=== PATIENT | female | born 1935 | race Caucasian/White ===

== ENCOUNTER 2020-04-23 08:24 | Inpatient (IN) ==
[2020-04-23] MEDS ORDERED: Nitroglycerin 0.4 MG TAB.SUBL SL PRN (08:40)
[2020-04-23] MEDS ORDERED: Aspirin 81 MG TAB.CHEW PO ONE (08:40)
[2020-04-23 08:58] LABS: Basophils % 0.3 %; Eosinophils # 0.2 K/mcL (0.0-0.6); Eosinophils % 2.1 %; Hemoglobin 13.2 g/dL (11.5-15.4); Immature Granulocytes % 0.4 % (0-4); Lymphocytes # 2.4 K/mcL (0.6-4.6); Lymphocytes % 22.3 %; Mean Corpuscular Hemoglobin 30.1 pg (28.0-33.3); Mean Corpuscular Volume 91.3 fL (83.0-100.0); Monocytes # 0.9 K/mcL (0.0-1.3); Monocytes % 8.6 %; Neutrophils # 7.2 K/mcL (1.6-8.9); Platelet Count 303 K/mcL (140-400); Red Blood Count 4.38 M/mcL (3.82-4.97); Red Cell Distribution Width 12.4 % (11.5-14.5); Segmented Neutrophils % 66.3 %; White Blood Count 10.9 K/mcL (4.3-11.1)
[2020-04-23 09:19] LABS: BUN/Creatinine Ratio 23 (6-26); Blood Urea Nitrogen 25 mg/dL (8-23); Calcium 9.9 mg/dL (8.6-10.3); Carbon Dioxide 25 mEq/L (23-29); Chloride 103 mEq/L (98-107); Glucose 211 mg/dL (70-105); Lipase 24 Units/L (11-82); Osmolality,Calculated 297 (280-300); Potassium 4.3 mEq/L (3.5-5.1); Sodium 138 mEq/L (136-145); Troponin I < 0.03 ng/mL (< 0.04); eGFR For African Americans 58 (> 60); eGFR For Non-African Americans 48 (> 60)
[2020-04-23 09:20] LABS: Prothrombin Time 11.1 Seconds (9.4-12.1)
[2020-04-23 09:22] LABS: Activated Partial Thrombo Time 28.4 Seconds (26.0-36.0)
[2020-04-23 10:25] LABS: Adenovirus Not Detected (Not Detect); Bordetella Pertussis Not Detected (Not Detect); Chlamydophila pneumoniae Not Detected (Not Detect); Coronavirus 229E Not Detected (Not Detect); Coronavirus HKU1 Not Detected (Not Detect); Coronavirus NL63 Not Detected (Not Detect); Coronavirus OC43 Not Detected (Not Detect); Human Metapneumovirus Not Detected (Not Detect); Human Rhinovirus/Enterovirus Not Detected (Not Detect); Influenza A Subtype 2009 H1 Not Detected (Not Detect); Influenza B Not Detected (Not Detect); Mycoplasma pneumoniae Not Detected (Not Detect); Parainfluenza Virus 1 Not Detected (Not Detect); Parainfluenza Virus 2 Not Detected (Not Detect); Parainfluenza Virus 3 Not Detected (Not Detect); Parainfluenza Virus 4 Not Detected (Not Detect); Respiratory Syncytial Virus Not Detected (Not Detect); SARS-CoV-2 Not Detected (Not Detect)
[2020-04-23] MEDS ORDERED: Acetaminophen 325 MG TABLET PO PRN (12:02)
[2020-04-23] MEDS ORDERED: MOM Conc 10 ML UD.LIQ PO PRN (12:02)
[2020-04-23] MEDS ORDERED: Naloxone 0.4 MG/ML INJ IVP PRN (12:02)
[2020-04-23] MEDS ORDERED: *HR* HYDROcodone/Acet 5/325 mg TABLET PO PRN (12:02)
[2020-04-23] MEDS ORDERED: Ondansetron 4 MG/2 ML VIAL IVP PRN (12:02)
[2020-04-23] MEDS ORDERED: Mag Hydrox/Al Hydrox/Simeth 30 ML UDC PO PRN (12:02)
[2020-04-23] MEDS ORDERED: Perflutren Lipid Microsphere 1.3 ML in 0.9 % Sodium Chloride 8.7 ML IVP PRN (12:07)
[2020-04-23] MEDS ORDERED: *HR* Dextrose 50 % in Water (Vial) 50 ML VIAL IVP PRN (12:09)
[2020-04-23] MEDS ORDERED: Dextrose Gel 15 GM/37.5 ML TUBE PO PRN ×2 (12:09)
[2020-04-23] MEDS ORDERED: D5% in Water 1,000 ML IVC PRN (12:09)
[2020-04-23] MEDS ORDERED: amLODIPine 5 MG TABLET PO SCH (12:15)
[2020-04-23] MEDS: lisinopriL 20 MG TABLET PO SCH (14:58)
[2020-04-23] MEDS: *HR* Heparin 5,000 UNIT/ML VIAL SQ SCH (18:06)
[2020-04-23] MEDS: Insulin LISPRO 300 UNITS/3 ML VIAL SQ SCH ×2 (18:06→20:59)
[2020-04-24] MEDS: *HR* Heparin 5,000 UNIT/ML VIAL SQ SCH (05:16)
[2020-04-24 07:24] LABS: Basophils % 0.4 %; Eosinophils # 0.2 K/mcL (0.0-0.6); Hematocrit 38.8 % (35.3-44.9); Hemoglobin 12.6 g/dL (11.5-15.4); Immature Granulocytes % 0.4 % (0-4); Lymphocytes % 25.8 %; Mean Corpuscular HGB Conc 32.5 g/dL (31.6-35.5); Mean Corpuscular Hemoglobin 29.3 pg (28.0-33.3); Mean Corpuscular Volume 90.2 fL (83.0-100.0); Mean Platelet Volume 10.9 fL (9.4-12.4); Monocytes # 0.8 K/mcL (0.0-1.3); Monocytes % 9.8 %; Neutrophils # 4.7 K/mcL (1.6-8.9); Platelet Count 282 K/mcL (140-400); Red Cell Distribution Width 12.5 % (11.5-14.5); Segmented Neutrophils % 60.6 %; White Blood Count 7.8 K/mcL (4.3-11.1)
[2020-04-24 08:04] LABS: Calcium 9.6 mg/dL (8.6-10.3); Chol/HDL Ratio 8.1 (0-4.9); Magnesium 1.9 mg/dL (1.6-2.6); Phosphorous 3.6 mg/dL (2.7-4.5); Potassium 4.4 mEq/L (3.5-5.1)
[2020-04-24] MEDS ORDERED: Regadenoson 0.4 MG/5 ML SYRINGE IVP ONE (08:09)
[2020-04-24] MEDS: Insulin LISPRO 300 UNITS/3 ML VIAL SQ SCH ×4 (08:26→19:51)
[2020-04-24] MEDS: Aspirin Enteric Coated 81 MG Tablet PO SCH (10:25)
[2020-04-24] MEDS: lisinopriL 20 MG TABLET PO SCH (10:25)
[2020-04-24] MEDS ORDERED: *HR* Heparin 5,000 UNIT/ML VIAL IVP PRN ×2 (16:41)
[2020-04-24] MEDS ORDERED: *HR* Heparin 5,000 UNIT/ML VIAL IVP ONE (16:41)
[2020-04-24] MEDS: Isosorbide MONOnitrate (24 HR) 30 MG TAB.ER.24H PO SCH (17:48)
[2020-04-24] MEDS: Heparin 25,000UNIT/250ML 1/2NS 25,000 UNIT/250 ML IV.SOLN IVC SCH (17:49)
[2020-04-24 18:21] LABS: Hematocrit 39.1 % (35.3-44.9); Hemoglobin 13.3 g/dL (11.5-15.4); Mean Corpuscular Hemoglobin 30.9 pg (28.0-33.3); Mean Corpuscular Volume 90.7 fL (83.0-100.0); Mean Platelet Volume 11.1 fL (9.4-12.4); Platelet Count 317 K/mcL (140-400); Red Blood Count 4.31 M/mcL (3.82-4.97); Red Cell Distribution Width 12.4 % (11.5-14.5); White Blood Count 11.1 K/mcL (4.3-11.1)
[2020-04-24 18:30] LABS: INR 0.9; Prothrombin Time 10.7 Seconds (9.4-12.1)
[2020-04-24 18:33] LABS: Heparin anti-factor XA UFH 1.32 IU/mL (0.30-0.70)
[2020-04-25] MEDS: Insulin LISPRO 300 UNITS/3 ML VIAL SQ SCH ×4 (07:05→21:08)
[2020-04-25] MEDS: lisinopriL 20 MG TABLET PO SCH (08:22)
[2020-04-25] MEDS: Aspirin Enteric Coated 81 MG Tablet PO SCH (08:22)
[2020-04-25] MEDS: Isosorbide MONOnitrate (24 HR) 30 MG TAB.ER.24H PO SCH (08:22)
[2020-04-25] MEDS ORDERED: predniSONE 20 MG TABLET PO ONE (17:00)
[2020-04-25] MEDS: Heparin 25,000UNIT/250ML 1/2NS 25,000 UNIT/250 ML IV.SOLN IVC SCH (17:47)
[2020-04-26] MEDS: Heparin 25,000UNIT/250ML 1/2NS 25,000 UNIT/250 ML IV.SOLN IVC SCH (05:26)
[2020-04-26] MEDS: Aspirin Enteric Coated 81 MG Tablet PO SCH (07:34)
[2020-04-26] MEDS: lisinopriL 20 MG TABLET PO SCH (07:34)
[2020-04-26] MEDS: Isosorbide MONOnitrate (24 HR) 30 MG TAB.ER.24H PO SCH (07:34)
[2020-04-26] MEDS: Insulin LISPRO 300 UNITS/3 ML VIAL SQ SCH ×4 (07:37→20:53)
[2020-04-26 07:59] LABS: Calcium 9.7 mg/dL (8.6-10.3); Potassium 4.4 mEq/L (3.5-5.1)
[2020-04-26] MEDS ORDERED: 0.9 % Sodium Chloride 1,000 ML ONE (08:54)
[2020-04-26] MEDS ORDERED: predniSONE 20 MG TABLET PO ONE (09:00)
[2020-04-26] MEDS ORDERED: 0.9 % Sodium Chloride 2,000 ML ONE (09:14)
[2020-04-26] MEDS ORDERED: ISOVUE-370 200 ML INFUS..BTL ONE (09:15)
[2020-04-26] MEDS ORDERED: Nitroglycerin 1,000 MCG/10 ML VIAL IV ONE (09:15)
[2020-04-26] MEDS ORDERED: Heparin 1,000 UNITS/500 mL 500 ML ONE (09:15)
[2020-04-26] MEDS ORDERED: *HR* Heparin 10,000 UNIT/10 ML VIAL ONE (09:15)
[2020-04-26] MEDS ORDERED: *HR* Midazolam HCl 2 MG/2 ML VIAL ONE (09:30)
[2020-04-26] MEDS: Chlorhexidine Rinse 15 ML MOUTHWASH MM SCH (20:46)
[2020-04-27 03:23] LABS: Calcium 9.3 mg/dL (8.6-10.3); Potassium 3.9 mEq/L (3.5-5.1)
[2020-04-27] MEDS: Aspirin Enteric Coated 81 MG Tablet PO SCH (08:56)
[2020-04-27] MEDS: Insulin LISPRO 300 UNITS/3 ML VIAL SQ SCH ×4 (08:57→21:10)
[2020-04-27] MEDS: lisinopriL 20 MG TABLET PO SCH (08:57)
[2020-04-27] MEDS: Isosorbide MONOnitrate (24 HR) 30 MG TAB.ER.24H PO SCH (08:57)
[2020-04-27 09:50] LABS: Estimated Average Glucose 169 mg/dl; Hemoglobin A1C 7.5 %
[2020-04-27] MEDS: Chlorhexidine Rinse 15 ML MOUTHWASH MM SCH (14:50)
[2020-04-27] MEDS: Heparin 25,000UNIT/250ML 1/2NS 25,000 UNIT/250 ML IV.SOLN IVC SCH (22:44)
[2020-04-28 04:21] LABS: Potassium 4.4 mEq/L (3.5-5.1)
[2020-04-28] MEDS: Aspirin Enteric Coated 81 MG Tablet PO SCH (09:13)
[2020-04-28] MEDS: Insulin LISPRO 300 UNITS/3 ML VIAL SQ SCH ×3 (09:13→17:45)
[2020-04-28] MEDS: Isosorbide MONOnitrate (24 HR) 30 MG TAB.ER.24H PO SCH (09:14)
[2020-04-28] MEDS ORDERED: 0.9 % Sodium Chloride 250 ML IVC SCH (13:45)
[2020-04-28] MEDS ORDERED: Chlorhexidine Rinse 15 ML MOUTHWASH MM SCH (21:00)
[2020-04-29 02:50] LABS: Hematocrit 33.7 % (35.3-44.9); Mean Corpuscular HGB Conc 32.6 g/dL (31.6-35.5); Mean Corpuscular Hemoglobin 29.7 pg (28.0-33.3); Mean Corpuscular Volume 91.1 fL (83.0-100.0); Mean Platelet Volume 10.8 fL (9.4-12.4); Platelet Count 225 K/mcL (140-400); Red Cell Distribution Width 12.8 % (11.5-14.5); White Blood Count 11.1 K/mcL (4.3-11.1)
[2020-04-29 03:13] LABS: BUN/Creatinine Ratio 30 (6-26); Blood Urea Nitrogen 31 mg/dL (8-23); Calcium 8.6 mg/dL (8.6-10.3); Carbon Dioxide 20 mEq/L (23-29); Chloride 110 mEq/L (98-107); Glucose 184 mg/dL (70-105); Osmolality,Calculated 297 (280-300); Sodium 138 mEq/L (136-145); eGFR For African Americans > 60 (> 60); eGFR For Non-African Americans 52 (> 60)
[2020-04-29] MEDS ORDERED: Naloxone 0.4 MG/ML INJ IVP PRN (04:45)
[2020-04-29] MEDS ORDERED: Acetaminophen 325 MG TABLET PO PRN (04:45)
[2020-04-29] MEDS ORDERED: Heparin 25,000UNIT/250ML 1/2NS 25,000 UNIT/250 ML IV.SOLN IVC SCH (04:45)
[2020-04-29] MEDS ORDERED: D5% in Water 1,000 ML IVC PRN (04:45)
[2020-04-29] MEDS ORDERED: Mag Hydrox/Al Hydrox/Simeth 30 ML UDC PO PRN (04:45)
[2020-04-29] MEDS ORDERED: Nitroglycerin 0.4 MG TAB.SUBL SL PRN (04:45)
[2020-04-29] MEDS ORDERED: Perflutren Lipid Microsphere 1.3 ML in 0.9 % Sodium Chloride 8.7 ML IVP PRN (04:45)
[2020-04-29] MEDS ORDERED: MOM Conc 10 ML UD.LIQ PO PRN (04:45)
[2020-04-29] MEDS ORDERED: *HR* Heparin 5,000 UNIT/ML VIAL IVP PRN ×2 (04:45)
[2020-04-29] MEDS ORDERED: *HR* Dextrose 50 % in Water (Vial) 50 ML VIAL IVP PRN ×2 (04:45→11:03)
[2020-04-29] MEDS ORDERED: Ondansetron 4 MG/2 ML VIAL IVP PRN (04:45)
[2020-04-29] MEDS ORDERED: Dextrose Gel 15 GM/37.5 ML TUBE PO PRN ×2 (04:45)
[2020-04-29] MEDS ORDERED: Aspirin 81 MG TAB.CHEW PO ONE ×2 (06:00)
[2020-04-29] MEDS ORDERED: *HR* Midazolam HCl 5 MG/5 ML VIAL IVP ONE (06:49)
[2020-04-29] MEDS ORDERED: *HR* Propofol 200 MG/20 ML VIAL IVP ONE (06:50)
[2020-04-29] MEDS ORDERED: *HR* FentaNYL (PF) 1,000 MCG/20 ML VIAL ONE (06:50)
[2020-04-29] MEDS ORDERED: *HR* PHENYLEPHRINE 1,000 MCG/10 ML SYRINGE IVP ONE (06:54)
[2020-04-29] MEDS ORDERED: *HR* Magnesium Sulfate 1 GM/2 ML VIAL ONE (06:54)
[2020-04-29] MEDS ORDERED: *HR* Rocuronium Bromide 50 MG/5 ML VIAL ONE ×2 (06:54→09:16)
[2020-04-29] MEDS ORDERED: Famotidine 20 MG/2 ML VIAL ONE (06:54)
[2020-04-29] MEDS ORDERED: Dexamethasone 4 MG/ML VIAL ONE (06:54)
[2020-04-29] MEDS ORDERED: Tranexamic Acid 1,000 MG/10 ML VIAL ONE (06:56)
[2020-04-29] MEDS ORDERED: CeFAZolin Syr 2,000MG/20 ML 2,000 MG/20 ML SYRINGE IVPB ONE ×2 (07:00)
[2020-04-29] MEDS ORDERED: Norepinephrine 4 MG in 0.9 % Sodium Chloride 250 ML IVC PRN (07:45)
[2020-04-29] MEDS ORDERED: Insulin Human Regular 100 UNIT in 0.9 % Sodium Chloride 100 ML IV PRN (07:45)
[2020-04-29] MEDS ORDERED: Dextrose 50 % in Water (Vial) 30 ML, Sodium Bicarbonate 20 MEQ, Lidocaine 1% 5 ML, Insu... TH ONE ×6 (07:45)
[2020-04-29] MEDS ORDERED: Heparin 15,000 UNIT in 0.9 % Sodium Chloride 500 ML IV ONE ×4 (07:45)
[2020-04-29] MEDS ORDERED: Dextrose 50 % in Water (Vial) 30 ML, Sodium Bicarbonate 20 MEQ, Potassium Chloride 15 M... TH ONE (07:45)
[2020-04-29 08:32] LABS: ABG Base Excess -9 mEq/L (-2 to 3); ABG Chloride 108 mEq/L (98-107); ABG Glucose 181 mg/dL (60-95); ABG HCO3 17 mEq/L (21-27); ABG Oxygen Saturation 100 % (95-98); ABG PCO2 34 mmHg (35-45); ABG PH 7.31 pH Units (7.32-7.45); ABG PO2 472 mmHg (85-104); ABG TCO2 18 mEq/L (20-26)
[2020-04-29] MEDS ORDERED: Isosorbide MONOnitrate (24 HR) 30 MG TAB.ER.24H PO SCH (09:00)
[2020-04-29] MEDS ORDERED: Chlorhexidine Rinse 15 ML MOUTHWASH MM SCH (09:00)
[2020-04-29 09:30] LABS: ABG Base Excess -5 mEq/L (-2 to 3); ABG Chloride 108 mEq/L (98-107); ABG Glucose 172 mg/dL (60-95); ABG HCO3 20 mEq/L (21-27); ABG Ionized Calcium 1.09 mmol/L (1.15-1.35); ABG Oxygen Saturation 100 % (95-98); ABG PCO2 37 mmHg (35-45); ABG PH 7.35 pH Units (7.32-7.45); ABG PO2 263 mmHg (85-104); ABG TCO2 22 mEq/L (20-26)
[2020-04-29 09:56] LABS: ABG Base Excess 1 mEq/L (-2 to 3); ABG Chloride 100 mEq/L (98-107); ABG Glucose 231 mg/dL (60-95); ABG HCO3 26 mEq/L (21-27); ABG Ionized Calcium 0.95 mmol/L (1.15-1.35); ABG Oxygen Saturation 100 % (95-98); ABG PCO2 41 mmHg (35-45); ABG PO2 611 mmHg (85-104); ABG TCO2 27 mEq/L (20-26)
[2020-04-29 10:27] LABS: ABG Base Excess -1 mEq/L (-2 to 3); ABG Chloride 103 mEq/L (98-107); ABG Glucose 213 mg/dL (60-95); ABG HCO3 24 mEq/L (21-27); ABG Ionized Calcium 1.08 mmol/L (1.15-1.35); ABG Oxygen Saturation 100 % (95-98); ABG PCO2 41 mmHg (35-45); ABG PH 7.38 pH Units (7.32-7.45); ABG PO2 430 mmHg (85-104); ABG TCO2 25 mEq/L (20-26)
[2020-04-29] MEDS ORDERED: Protamine Sulfate 250 MG/25 ML VIAL IVP ONE (10:27)
[2020-04-29] MEDS ORDERED: Calcium Gluconate 1,000 MG/10 ML VIAL ONE (10:27)
[2020-04-29 10:38] LABS: ABG Base Excess -2 mEq/L (-2 to 3); ABG Chloride 105 mEq/L (98-107); ABG Glucose 164 mg/dL (60-95); ABG HCO3 23 mEq/L (21-27); ABG Ionized Calcium 1.23 mmol/L (1.15-1.35); ABG Oxygen Saturation 100 % (95-98); ABG PCO2 40 mmHg (35-45); ABG PH 7.37 pH Units (7.32-7.45); ABG PO2 616 mmHg (85-104); ABG TCO2 25 mEq/L (20-26)
[2020-04-29 11:03] LABS: ABG Base Excess -6 mEq/L (-2 to 3); ABG Chloride 109 mEq/L (98-107); ABG Glucose 136 mg/dL (60-95); ABG HCO3 18 mEq/L (21-27); ABG Ionized Calcium 1.11 mmol/L (1.15-1.35); ABG Oxygen Saturation 99 % (95-98); ABG PCO2 29 mmHg (35-45); ABG PH 7.41 pH Units (7.32-7.45); ABG PO2 122 mmHg (85-104); ABG TCO2 19 mEq/L (20-26)
[2020-04-29] MEDS ORDERED: Insulin Regular, Human 100 UNIT/ML IV PRN (11:03)
[2020-04-29] MEDS ORDERED: Potassium Chloride 40 MEQ/200 ML BAG IVPB PRN (11:03)
[2020-04-29] MEDS ORDERED: Acetaminophen 650 MG RECTAL SUPP RC PRN (11:05)
[2020-04-29] MEDS ORDERED: Albumin Human 5% 12.5 GM/250 ML IV.SOLN IVPB PRN (11:05)
[2020-04-29] MEDS ORDERED: Calcium Gluconate 1gm/50mL 1 GM/50 ML BAG IVPB PRN (11:05)
[2020-04-29] MEDS ORDERED: Insulin Human Regular 100 UNIT in 0.9 % Sodium Chloride 100 ML IVC SCH (11:15)
[2020-04-29] MEDS ORDERED: Albumin Human 5% 50.0 GM/1,000 ML IV.SOLN ONE (11:18)
[2020-04-29] MEDS: Norepinephrine 4 MG/254 ML IV.SOLN IVC SCH (11:38)
[2020-04-29 11:57] LABS: ABG Base Excess -2 mEq/L (-2 to 3); ABG HCO3 23 mEq/L (21-27); ABG Oxygen Saturation 99 % (95-98); ABG PCO2 39 mmHg (35-45); ABG PH 7.38 pH Units (7.32-7.45); ABG PO2 117 mmHg (85-104); ABG TCO2 24 mEq/L (20-26); Blood Gas Modality ASSIST CONTROL; Blood Gas VT 500 cc
[2020-04-29] MEDS: Pantoprazole 40 MG VIAL IVP SCH (12:14)
[2020-04-29 12:17] LABS: Basophils % 0.2 %; Eosinophils # 0.1 K/mcL (0.0-0.6); Eosinophils % 0.6 %; Hemoglobin 11.5 g/dL (11.5-15.4); Immature Granulocytes % 1.4 % (0-4); Lymphocytes # 1.9 K/mcL (0.6-4.6); Lymphocytes % 8.8 %; Mean Corpuscular HGB Conc 32.9 g/dL (31.6-35.5); Mean Corpuscular Hemoglobin 29.6 pg (28.0-33.3); Monocytes # 2.1 K/mcL (0.0-1.3); Monocytes % 9.7 %; Neutrophils # 17.3 K/mcL (1.6-8.9); Platelet Count 122 K/mcL (140-400); Red Blood Count 3.89 M/mcL (3.82-4.97); Red Cell Distribution Width 12.8 % (11.5-14.5); Segmented Neutrophils % 79.3 %
[2020-04-29 12:18] LABS: White Blood Count 21.8 K/mcL (4.3-11.1)
[2020-04-29] MEDS: niCARdipine 20 MG/200 ML MLS IVC SCH ×2 (12:18→17:15)
[2020-04-29] MEDS: Metoclopramide 10 MG/2 ML VIAL IVP SCH ×2 (12:18→17:53)
[2020-04-29 12:20] LABS: INR 1.3
[2020-04-29] MEDS: 0.9 % Sodium Chloride w KCl 20 MEQ/1,000 ML MLS IVC SCH (12:22)
[2020-04-29] MEDS: *HR* FentaNYL (PF) 100 MCG/2 ML VIAL IVP PRN ×4 (12:24→19:16)
[2020-04-29 12:27] LABS: Prothrombin Time 14.9 Seconds (9.4-12.1)
[2020-04-29] MEDS: Insulin LISPRO 300 UNITS/3 ML VIAL SUBQ SCH ×3 (12:30→17:51)
[2020-04-29 12:35] LABS: BUN/Creatinine Ratio 28 (6-26); Blood Urea Nitrogen 22 mg/dL (8-23); Calcium 7.5 mg/dL (8.6-10.3); Carbon Dioxide 23 mEq/L (23-29); Chloride 110 mEq/L (98-107); Glucose 180 mg/dL (70-105); Magnesium 2.9 mg/dL (1.6-2.6); Osmolality,Calculated 296 (280-300); Potassium 4.1 mEq/L (3.5-5.1); Sodium 139 mEq/L (136-145); eGFR For African Americans > 60 (> 60); eGFR For Non-African Americans > 60 (> 60)
[2020-04-29] MEDS ORDERED: Calcium Gluconate 1gm/50mL 1 GM/50 ML BAG IVPB ONE (13:48)
[2020-04-29] MEDS: Calcium Gluconate 1gm/50mL 1 GM/50 ML BAG IVPB PRN ×2 (14:39→15:39)
[2020-04-29] MEDS: *HR* OxyCODONE/APAP 5/325 TABLET PO PRN ×2 (15:24→19:54)
[2020-04-29] MEDS: CeFAZolin 2 GM/120 ML BAG IVPB SCH (15:40)
[2020-04-29] MEDS ORDERED: Mannitol 25% vial 12.5 GM/50 ML VIAL IVPB ONE (16:21)
[2020-04-29] MEDS ORDERED: *HR* Magnesium Sulfate 2 GM/50 ML PIGGYBACK IVPB ONE (16:21)
[2020-04-29] MEDS ORDERED: Lidocaine 2% Syringe 100 MG/5 ML IVP ONE (16:21)
[2020-04-29] MEDS ORDERED: Albumin Human 25% 25 GM/100 ML IV.SOLN IVPB ONE (16:21)
[2020-04-29] MEDS ORDERED: *HR* Heparin 10,000 UNIT/10 ML VIAL IR ONE (16:21)
[2020-04-29] MEDS ORDERED: *HR* Phenylephrine 10 MG/ML VIAL IVC ONE (16:21)
[2020-04-29 17:03] LABS: ABG Base Excess -3 mEq/L (-2 to 3); ABG HCO3 22 mEq/L (21-27); ABG Oxygen Saturation 99 % (95-98); ABG PCO2 38 mmHg (35-45); ABG PH 7.36 pH Units (7.32-7.45); ABG PO2 127 mmHg (85-104); ABG TCO2 23 mEq/L (20-26); Blood Gas Modality CPAP/PS; Blood Gas Pressure Support 10 cm H2O
[2020-04-29 17:45] LABS: ABG Base Excess -4 mEq/L (-2 to 3); ABG HCO3 22 mEq/L (21-27); ABG Oxygen Saturation 95 % (95-98); ABG PCO2 43 mmHg (35-45); ABG PH 7.32 pH Units (7.32-7.45); ABG PO2 82 mmHg (85-104); ABG TCO2 23 mEq/L (20-26)
[2020-04-29] MEDS: *HR* HYDROcodone/Acet 5/325 mg TABLET PO PRN (18:21)
[2020-04-29] MEDS: Chlorhexidine Rinse 15 ML MOUTHWASH MM SCH (20:56)
[2020-04-29] MEDS: Furosemide 20 MG/2 ML VIAL IVP SCH (20:56)
[2020-04-29] MEDS ORDERED: Insulin LISPRO 300 UNITS/3 ML VIAL SUBQ SCH (21:00)
[2020-04-30] MEDS: CeFAZolin 2 GM/120 ML BAG IVPB SCH (00:11)
[2020-04-30] MEDS: Metoclopramide 10 MG/2 ML VIAL IVP SCH ×4 (00:11→17:02)
[2020-04-30] MEDS: *HR* HYDROcodone/Acet 5/325 mg TABLET PO PRN ×2 (00:17→09:47)
[2020-04-30] MEDS: niCARdipine 20 MG/200 ML MLS IVC SCH ×4 (02:32→19:41)
[2020-04-30] MEDS: *HR* OxyCODONE/APAP 5/325 TABLET PO PRN ×5 (03:56→21:19)
[2020-04-30 04:25] LABS: Basophils % 0.2 %; Lymphocytes % 5.4 %; Mean Platelet Volume 11.2 fL (9.4-12.4); Red Cell Distribution Width 13.2 % (11.5-14.5)
[2020-04-30 04:26] LABS: INR 1.1; Prothrombin Time 12.9 Seconds (9.4-12.1)
[2020-04-30 04:27] LABS: Basophils # 0.1 K/mcL (0.0-0.2); Hematocrit 35.8 % (35.3-44.9); Hemoglobin 12.2 g/dL (11.5-15.4); Immature Granulocytes % 0.9 % (0-4); Lymphocytes # 1.7 K/mcL (0.6-4.6); Mean Corpuscular HGB Conc 34.1 g/dL (31.6-35.5); Mean Corpuscular Hemoglobin 30.1 pg (28.0-33.3); Mean Corpuscular Volume 88.4 fL (83.0-100.0); Monocytes # 3.2 K/mcL (0.0-1.3); Monocytes % 10.2 %; Platelet Count 169 K/mcL (140-400); Red Blood Count 4.05 M/mcL (3.82-4.97); Segmented Neutrophils % 83.3 %
[2020-04-30 04:29] LABS: Activated Partial Thrombo Time 24.3 Seconds (26.0-36.0)
[2020-04-30 04:30] LABS: Neutrophils # 25.7 K/mcL (1.6-8.9)
[2020-04-30 04:32] LABS: White Blood Count 30.9 K/mcL (4.3-11.1)
[2020-04-30 04:43] LABS: BUN/Creatinine Ratio 21 (6-26); Blood Urea Nitrogen 21 mg/dL (8-23); Calcium 8.2 mg/dL (8.6-10.3); Carbon Dioxide 22 mEq/L (23-29); Chloride 110 mEq/L (98-107); Glucose 150 mg/dL (70-105); Magnesium 2.1 mg/dL (1.6-2.6); Osmolality,Calculated 296 (280-300); Potassium 4.3 mEq/L (3.5-5.1); Sodium 140 mEq/L (136-145); eGFR For African Americans > 60 (> 60); eGFR For Non-African Americans 53 (> 60)
[2020-04-30 04:58] LABS: Platelet Estimate Normal (Normal)
[2020-04-30] MEDS ORDERED: D5% in Water 1,000 ML IVC PRN (06:46)
[2020-04-30] MEDS ORDERED: Dextrose Gel 15 GM/37.5 ML TUBE PO PRN ×2 (06:46)
[2020-04-30] MEDS ORDERED: *HR* Dextrose 50 % in Water (Vial) 50 ML VIAL IVP PRN (06:46)
[2020-04-30] MEDS: *HR* Heparin 5,000 UNIT/ML VIAL SQ SCH ×2 (07:33→17:03)
[2020-04-30] MEDS: 0.9 % Sodium Chloride w KCl 20 MEQ/1,000 ML MLS IVC SCH (07:34)
[2020-04-30] MEDS: Insulin LISPRO 300 UNITS/3 ML VIAL SUBQ SCH ×4 (07:42→21:19)
[2020-04-30] MEDS: Pantoprazole 40 MG VIAL IVP SCH (08:04)
[2020-04-30] MEDS: Aspirin Enteric Coated 81 MG Tablet PO SCH (08:05)
[2020-04-30] MEDS: Chlorhexidine Rinse 15 ML MOUTHWASH MM SCH ×2 (08:05→21:17)
[2020-04-30] MEDS: Furosemide 20 MG/2 ML VIAL IVP SCH ×2 (08:05→21:00)
[2020-04-30] MEDS: Norepinephrine 4 MG/254 ML IV.SOLN IVC SCH (08:06)
[2020-04-30] MEDS ORDERED: *HR* FentaNYL (PF) 100 MCG/2 ML VIAL IVP PRN (11:05)
[2020-05-01] MEDS: Metoclopramide 10 MG/2 ML VIAL IVP SCH ×4 (00:29→17:39)
[2020-05-01] MEDS: niCARdipine 20 MG/200 ML MLS IVC SCH ×2 (00:36→05:58)
[2020-05-01 04:10] LABS: Basophils % 0.1 %; Eosinophils % 0.1 %; Hematocrit 34.3 % (35.3-44.9); Hemoglobin 11.4 g/dL (11.5-15.4); Immature Granulocytes % 0.8 % (0-4); Lymphocytes # 2.1 K/mcL (0.6-4.6); Lymphocytes % 9.8 %; Mean Corpuscular HGB Conc 33.2 g/dL (31.6-35.5); Mean Corpuscular Hemoglobin 30.6 pg (28.0-33.3); Mean Corpuscular Volume 92.2 fL (83.0-100.0); Mean Platelet Volume 11.6 fL (9.4-12.4); Monocytes # 2.6 K/mcL (0.0-1.3); Monocytes % 12.3 %; Neutrophils # 16.1 K/mcL (1.6-8.9); Platelet Count 155 K/mcL (140-400); Red Blood Count 3.72 M/mcL (3.82-4.97); Red Cell Distribution Width 13.4 % (11.5-14.5); Segmented Neutrophils % 76.9 %; White Blood Count 20.9 K/mcL (4.3-11.1)
[2020-05-01 04:28] LABS: Calcium 8.2 mg/dL (8.6-10.3); Potassium 4.2 mEq/L (3.5-5.1)
[2020-05-01] MEDS: *HR* Heparin 5,000 UNIT/ML VIAL SQ SCH ×2 (06:03→17:39)
[2020-05-01] MEDS: *HR* OxyCODONE/APAP 5/325 TABLET PO PRN (06:12)
[2020-05-01] MEDS: Norepinephrine 4 MG/254 ML IV.SOLN IVC SCH (06:29)
[2020-05-01] MEDS: Insulin LISPRO 300 UNITS/3 ML VIAL SUBQ SCH ×4 (06:53→21:13)
[2020-05-01] MEDS: Furosemide 20 MG/2 ML VIAL IVP SCH ×2 (08:02→21:00)
[2020-05-01] MEDS: Chlorhexidine Rinse 15 ML MOUTHWASH MM SCH ×2 (08:02→21:00)
[2020-05-01] MEDS: Pantoprazole 40 MG VIAL IVP SCH (08:02)
[2020-05-01] MEDS: Aspirin Enteric Coated 81 MG Tablet PO SCH (08:03)
[2020-05-02] MEDS: Metoclopramide 10 MG/2 ML VIAL IVP SCH ×3 (02:21→12:23)
[2020-05-02] MEDS: niCARdipine 20 MG/200 ML MLS IVC SCH ×7 (02:21→19:51)
[2020-05-02 05:02] LABS: Basophils % 0.1 %; Eosinophils # 0.1 K/mcL (0.0-0.6); Eosinophils % 0.9 %; Hemoglobin 11.7 g/dL (11.5-15.4); Immature Granulocytes % 0.5 % (0-4); Lymphocytes # 2.1 K/mcL (0.6-4.6); Lymphocytes % 13.8 %; Mean Corpuscular HGB Conc 33.4 g/dL (31.6-35.5); Mean Corpuscular Hemoglobin 30.4 pg (28.0-33.3); Mean Corpuscular Volume 90.9 fL (83.0-100.0); Mean Platelet Volume 11.5 fL (9.4-12.4); Monocytes # 1.8 K/mcL (0.0-1.3); Monocytes % 11.5 %; Neutrophils # 11.4 K/mcL (1.6-8.9); Platelet Count 171 K/mcL (140-400); Red Blood Count 3.85 M/mcL (3.82-4.97); Red Cell Distribution Width 13.2 % (11.5-14.5); Segmented Neutrophils % 73.2 %; White Blood Count 15.5 K/mcL (4.3-11.1)
[2020-05-02 05:21] LABS: BUN/Creatinine Ratio 26 (6-26); Blood Urea Nitrogen 27 mg/dL (8-23); Calcium 8.2 mg/dL (8.6-10.3); Carbon Dioxide 24 mEq/L (23-29); Chloride 101 mEq/L (98-107); Glucose 187 mg/dL (70-105); Magnesium 1.8 mg/dL (1.6-2.6); Osmolality,Calculated 290 (280-300); Potassium 3.7 mEq/L (3.5-5.1); Sodium 135 mEq/L (136-145); eGFR For African Americans > 60 (> 60); eGFR For Non-African Americans 52 (> 60)
[2020-05-02] MEDS: *HR* Heparin 5,000 UNIT/ML VIAL SQ SCH ×2 (05:59→17:10)
[2020-05-02] MEDS: Insulin LISPRO 300 UNITS/3 ML VIAL SUBQ SCH ×4 (07:58→19:50)
[2020-05-02] MEDS: Aspirin Enteric Coated 81 MG Tablet PO SCH (08:03)
[2020-05-02] MEDS: Furosemide 20 MG/2 ML VIAL IVP SCH (08:04)
[2020-05-02] MEDS: Chlorhexidine Rinse 15 ML MOUTHWASH MM SCH ×2 (08:04→19:50)
[2020-05-02] MEDS: Pantoprazole 40 MG VIAL IVP SCH (08:04)
[2020-05-02] MEDS: Norepinephrine 4 MG/254 ML IV.SOLN IVC SCH (12:22)
[2020-05-03 05:20] LABS: Basophils % 0.2 %; Eosinophils # 0.3 K/mcL (0.0-0.6); Eosinophils % 2.1 %; Hematocrit 34.5 % (35.3-44.9); Hemoglobin 11.3 g/dL (11.5-15.4); Immature Granulocytes % 0.8 % (0-4); Lymphocytes # 2.1 K/mcL (0.6-4.6); Lymphocytes % 14.9 %; Mean Corpuscular HGB Conc 32.8 g/dL (31.6-35.5); Mean Corpuscular Hemoglobin 30.5 pg (28.0-33.3); Mean Corpuscular Volume 93.2 fL (83.0-100.0); Monocytes # 1.8 K/mcL (0.0-1.3); Monocytes % 13.2 %; Neutrophils # 9.5 K/mcL (1.6-8.9); Platelet Count 192 K/mcL (140-400); Red Cell Distribution Width 12.9 % (11.5-14.5); Segmented Neutrophils % 68.8 %; White Blood Count 13.9 K/mcL (4.3-11.1)
[2020-05-03] MEDS: niCARdipine 20 MG/200 ML MLS IVC SCH ×4 (05:53→15:30)
[2020-05-03] MEDS: *HR* Heparin 5,000 UNIT/ML VIAL SQ SCH ×2 (05:54→17:40)
[2020-05-03] MEDS: Chlorhexidine Rinse 15 ML MOUTHWASH MM SCH ×2 (08:10→20:10)
[2020-05-03] MEDS: Insulin LISPRO 300 UNITS/3 ML VIAL SUBQ SCH ×3 (08:10→15:29)
[2020-05-03] MEDS: Aspirin Enteric Coated 81 MG Tablet PO SCH (08:10)
[2020-05-03] MEDS: Pantoprazole 40 MG VIAL IVP SCH (08:10)
[2020-05-03] MEDS: Norepinephrine 4 MG/254 ML IV.SOLN IVC SCH (15:29)
[2020-05-03] MEDS ORDERED: *HR* Dextrose 50 % in Water (Vial) 50 ML VIAL IVP PRN (16:57)
[2020-05-03] MEDS ORDERED: Ondansetron 4 MG/2 ML VIAL IVP PRN (16:57)
[2020-05-03] MEDS ORDERED: Mag Hydrox/Al Hydrox/Simeth 30 ML UDC PO PRN (16:57)
[2020-05-03] MEDS ORDERED: Naloxone 0.4 MG/ML INJ IVP PRN (16:57)
[2020-05-03] MEDS ORDERED: MOM Conc 10 ML UD.LIQ PO PRN (16:57)
[2020-05-03] MEDS ORDERED: Acetaminophen 325 MG TABLET PO PRN (16:57)
[2020-05-03] MEDS ORDERED: Dextrose Gel 15 GM/37.5 ML TUBE PO PRN ×2 (16:57)
[2020-05-03] MEDS ORDERED: Insulin LISPRO 300 UNITS/3 ML VIAL SUBQ SCH (21:00)
[2020-05-04 05:23] LABS: Basophils % 0.2 %; Eosinophils # 0.4 K/mcL (0.0-0.6); Eosinophils % 2.7 %; Hematocrit 34.9 % (35.3-44.9); Immature Granulocytes % 1.1 % (0-4); Lymphocytes % 14.6 %; Mean Corpuscular HGB Conc 31.5 g/dL (31.6-35.5); Mean Corpuscular Hemoglobin 29.3 pg (28.0-33.3); Mean Corpuscular Volume 93.1 fL (83.0-100.0); Mean Platelet Volume 10.8 fL (9.4-12.4); Monocytes % 15.1 %; Neutrophils # 8.8 K/mcL (1.6-8.9); Platelet Count 226 K/mcL (140-400); Red Blood Count 3.75 M/mcL (3.82-4.97); Red Cell Distribution Width 12.7 % (11.5-14.5); Segmented Neutrophils % 66.3 %; White Blood Count 13.3 K/mcL (4.3-11.1)
[2020-05-04 05:41] LABS: BUN/Creatinine Ratio 23 (6-26); Blood Urea Nitrogen 21 mg/dL (8-23); Calcium 8.2 mg/dL (8.6-10.3); Carbon Dioxide 22 mEq/L (23-29); Chloride 103 mEq/L (98-107); Glucose 218 mg/dL (70-105); Osmolality,Calculated 288 (280-300); Potassium 4.4 mEq/L (3.5-5.1); Sodium 134 mEq/L (136-145); eGFR For African Americans > 60 (> 60); eGFR For Non-African Americans 59 (> 60)
[2020-05-04] MEDS: *HR* Heparin 5,000 UNIT/ML VIAL SQ SCH (06:03)
[2020-05-04] MEDS ORDERED: Insulin LISPRO 300 UNITS/3 ML VIAL SUBQ SCH (07:30)
[2020-05-04] MEDS: Chlorhexidine Rinse 15 ML MOUTHWASH MM SCH (08:19)
[2020-05-04] MEDS ORDERED: Aspirin Enteric Coated 81 MG Tablet PO SCH (09:00)
[2020-05-04 09:21] VITALS: BP 124/65
== END 2020-05-04 12:30 | disposition home or self-care (01) | DRG 234 ==
LOC: EMEROOARM 08:24 → 3BNU 08:24 → ICNU 04-28 19:28
PROVIDERS: ADMIT Internal Medicine; ATTEND Internal Medicine

== ENCOUNTER 2021-04-23 10:14 | Observation (INO) ==
[2021-04-23] MEDS ORDERED: Aspirin 81 MG TAB.CHEW PO ONE (10:29)
[2021-04-23 11:17] LABS: Basophils % 0.1 %; Eosinophils # 0.1 K/mcL (0.0-0.6); Eosinophils % 0.9 %; Hematocrit 32.4 % (35.3-44.9); Immature Granulocytes % 0.6 % (0-4); Lymphocytes # 1.1 K/mcL (0.6-4.6); Lymphocytes % 13.8 %; Mean Corpuscular Hemoglobin 30.7 pg (28.0-33.3); Mean Corpuscular Volume 90.5 fL (83.0-100.0); Mean Platelet Volume 10.3 fL (9.4-12.4); Monocytes # 1.1 K/mcL (0.0-1.3); Neutrophils # 5.6 K/mcL (1.6-8.9); Platelet Count 386 K/mcL (140-400); Red Blood Count 3.58 M/mcL (3.82-4.97); Red Cell Distribution Width 11.9 % (11.5-14.5); Segmented Neutrophils % 70.6 %; White Blood Count 7.9 K/mcL (4.3-11.1)
[2021-04-23 11:25] LABS: Prothrombin Time 11.6 Seconds (9.4-12.1)
[2021-04-23 11:35] LABS: BUN/Creatinine Ratio 21 (6-26); Blood Urea Nitrogen 19 mg/dL (8-23); Carbon Dioxide 27 mEq/L (23-29); Chloride 100 mEq/L (98-107); Glucose 143 mg/dL (70-105); Osmolality,Calculated 289 (280-300); Potassium 3.9 mEq/L (3.5-5.1); Sodium 137 mEq/L (136-145); eGFR For African Americans > 60 (> 60); eGFR For Non-African Americans > 60 (> 60)
[2021-04-23 11:36] LABS: Troponin I < 0.03 ng/mL (< 0.04)
[2021-04-23] MEDS ORDERED: Naloxone 0.4 MG/ML INJ IVP PRN (13:08)
[2021-04-23] MEDS: Isosorbide MONOnitrate (24 HR) 30 MG TAB.ER.24H PO SCH (14:35)
[2021-04-23] MEDS: Insulin LISPRO 300 UNITS/3 ML VIAL SUBQ SCH (16:55)
[2021-04-23] MEDS: *HR* Heparin 5,000 UNIT/ML VIAL SQ SCH (16:56)
[2021-04-23] MEDS: Metoprolol XL (24 HR) Succ 50 MG TAB.ER.24H PO SCH (20:12)
[2021-04-23] MEDS ORDERED: Mag Hydrox/Al Hydrox/Simeth 30 ML UDC PO PRN (20:39)
[2021-04-24 01:17] LABS: BUN/Creatinine Ratio 22 (6-26); Blood Urea Nitrogen 18 mg/dL (8-23); Calcium 8.7 mg/dL (8.6-10.3); Carbon Dioxide 26 mEq/L (23-29); Chloride 104 mEq/L (98-107); Glucose 136 mg/dL (70-105); Osmolality,Calculated 290 (280-300); Potassium 3.9 mEq/L (3.5-5.1); Sodium 138 mEq/L (136-145); eGFR For African Americans > 60 (> 60); eGFR For Non-African Americans > 60 (> 60)
[2021-04-24] MEDS: *HR* Heparin 5,000 UNIT/ML VIAL SQ SCH (05:06)
[2021-04-24] MEDS: Isosorbide MONOnitrate (24 HR) 30 MG TAB.ER.24H PO SCH (07:55)
[2021-04-24] MEDS: Metoprolol XL (24 HR) Succ 50 MG TAB.ER.24H PO SCH (07:55)
[2021-04-24] MEDS: Insulin LISPRO 300 UNITS/3 ML VIAL SUBQ SCH ×2 (07:56→11:28)
[2021-04-24] MEDS ORDERED: Isovue-370 500 ML BOTTLE IVP ONE (08:10)
[2021-04-24] MEDS ORDERED: MethylPREDNISolone 40 MG/ML VIAL IVP ONE (08:11)
[2021-04-24] MEDS ORDERED: Aspirin Enteric Coated 81 MG Tablet PO SCH (09:00)
[2021-04-24] MEDS ORDERED: Cholecalciferol (D-3) 1,000 UNIT (25MCG) TABLET PO SCH (09:00)
[2021-04-24] MEDS ORDERED: NIFEdipine XL (24 HR) 60 MG TAB.ER.24 PO SCH (09:00)
[2021-04-24] MEDS ORDERED: Furosemide 20 MG TABLET PO SCH (09:00)
[2021-04-24] MEDS ORDERED: lisinopriL 20 MG TABLET PO SCH (09:00)
[2021-04-24 11:27] VITALS: BP 131/55; PULSE 81; TEMP 97.8; O2SAT 97
== END 2021-04-24 12:29 | disposition home or self-care (01) ==
LOC: EMEROOARM 10:14 → 3BNU 10:14
PROVIDERS: ADMIT Hospitalist; ATTEND Hospitalist